=== PATIENT | male | born 1970 | race American Indian/Alaskan Native ===

== ENCOUNTER 2019-09-09 12:45 | Emergency (ER) | payer SELFPAY ==
[2019-09-09 12:52] VITALS: BP 121/70
--- NOTE | 2019-09-09 13:06 | Emergency Department Report ---
ED Eye Problem HPI - General Chief complaint: Eye Problems Stated complaint: EYE DISCOMFORT Time Seen by Provider: 09/09/19 12:56 Source: patient Mode of arrival: Ambulatory Limitations: No Limitations - History of Present Illness Initial comments: pt is a 49 yo male who presents to the ED with c/o left eye irritation and swelling that began a week ago. he has had associated watery drainage, crusting. he states that he does have a hx of eczema and states that he has a rash surrounding the eye. he denies any contact lens use. he states that he believes gnats were flying around a week and a half ago but states that he does not remember the gnat getting into the eye. allergy: latex, codeine. - Related Data Previous Rx's Medication Instructions Recorded Last Taken Type Hydrocortisone [Hydrocortisone 1 applicatio TP BID #1 oint...g. 09/09/19 Unknown Rx 2.5% OINT] Ketotifen Fumarate 1 drop OS BID 10 Days #1 bottle 09/09/19 Unknown Rx Polymyxin B Sulf/Trimethoprim 1 drop OS Q3HR 7 Days #1 bottle 09/09/19 Unknown Rx [Polytrim Eye Drops [id number]/0.1%] Prednisone [predniSONE 10 mg 10 mg PO .TAPER #1 tab.ds.pk 09/09/19 Unknown Rx (6-Day Pack, 21 Tabs)] Allergies Allergy/AdvReac Type Severity Reaction Status Date / Time latex Allergy Hives Verified 09/09/19 12:49 ED Review of Systems ROS: Stated complaint: EYE DISCOMFORT Other details as noted in HPI Comment: All other systems reviewed and negative ED Past Medical Hx - Past Medical History Previous Medical History?: Yes Additional medical history: Eczema - Surgical History Past Surgical History?: No - Social History Smoking Status: Current Every Day Smoker Substance Use Type: Marijuana - Medications Home Medications: Home Medications Medication Instructions Recorded Confirmed Last Taken Type Hydrocortisone [Hydrocortisone 1 applicatio TP BID #1 oint...g. 09/09/19 Unknown Rx 2.5% OINT] Ketotifen Fumarate 1 drop OS BID 10 Days #1 bottle 09/09/19 Unknown Rx Polymyxin B Sulf/Trimethoprim 1 drop OS Q3HR 7 Days #1 bottle 09/09/19 Unknown Rx [Polytrim Eye Drops 92496hyfse/0.1%] Prednisone [predniSONE 10 mg 10 mg PO .TAPER #1 tab.ds.pk 09/09/19 Unknown Rx (6-Day Pack, 21 Tabs)] ED Physical Exam - General Limitations: No Limitations General appearance: alert, in no apparent distress - Head Head exam: Present: atraumatic, normocephalic - Eye Eye exam: Present: PERRL, EOMI, conjunctival injection (left ), other (hyperpigmentation and scaly skin present surrouding the eye). Absent: periorbital swelling, periorbital tenderness - ENT ENT exam: Present: mucous membranes moist - Neurological Exam Neurological exam: Present: alert, oriented X3 - Psychiatric Psychiatric exam: Present: normal affect, normal mood - Skin Skin exam: Present: warm, dry, other (hyperpigmentation and scaling present to the flexural surface of the arms) ED Course Vital Signs 09/09/19 12:49 Temperature 98.6 F Pulse Rate 83 Respiratory 20 Rate Blood Pressure 121/70 O2 Sat by Pulse 98 Oximetry ED Medical Decision Making - Medical Decision Making pt is a 49 yo male who presents to the ED with c/o left eye irritation and swelling that began a week ago. he has had associated watery drainage, crusting. he states that he does have a hx of eczema and states that he has a rash surrounding the eye. he denies any contact lens use. he states that he believes gnats were flying around a week and a half ago but states that he does not remember the gnat getting into the eye. allergy: latex, codeine. Vitals are normal. On exam patient has left-sided conjunctival injection and hyperpigmentation and scaly skin present surrounding the left eye, hyperpigmentation and scaling present to the flexural surface of the arms. He states that he usually uses hydrocortisone cream or triamcinolone and takes prednisone whenever he gets outbreaks of his eczema. Patient given prescription for hydrocortisone, Zaditor, Polytrim, prednisone. Advised patient please use medication as prescribed. please do not get the hydrocortisone ointment in the eye and only use for one week. please separate using the different eye drops by one hour. if you place one of the medications wait an hour before you use the other eye drops. please follow up with an manager fine for reexamination. please follow up with a primary care doctor. return to the emergency room for any new or worsening symptoms. Critical care attestation.: If time is entered above; I have spent that time in minutes in the direct care of this critically ill patient, excluding procedure time. ED Disposition Clinical Impression: Eczema Qualifiers: Eczema type: unspecified Qualified Code(s): L30.9 - Dermatitis, unspecified Conjunctivitis Qualifiers: Conjunctivitis type: acute Acute conjunctivitis type: unspecified Laterality: left Qualified Code(s): H10.32 - Unspecified acute conjunctivitis, left eye Disposition: TO HOME OR SELFCARE Is pt being admited?: No Does the pt Need Aspirin: No Condition: Stable Instructions: Eczema (ED), Conjunctivitis (ED) Additional Instructions: please use medication as prescribed. please do not get the hydrocortisone ointment in the eye and only use for one week. please separate using the different eye drops by one hour. if you place on of the medications wait an hour before you use the other eye drops. please follow up with an manager fine for reexamination. please follow up with a primary care doctor. return to the emergency room for any new or worsening symptoms. Prescriptions: Hydrocortisone [Hydrocortisone 2.5% OINT] 1 applicatio TP BID #1 oint...g. Ketotifen Fumarate 1 drop OS BID 10 Days #1 bottle Polymyxin B Sulf/Trimethoprim [Polytrim Eye Drops [id number]/0.1%] 1 drop OS Q3HR 7 Days #1 bottle Prednisone [predniSONE 10 mg (6-Day Pack, 21 Tabs)] 10 mg PO .TAPER #1 tab.ds.pk Referrals: YUE SHIRLEY MD [Staff Physician] - 3-5 Days [facility], [LAB/CONTRACT] - 3-5 Days [facility] [Outside] - 3-5 Days [facility] [Provider Group] - 2-3 Days Time of Disposition: 13:07 Print Language: NEPALI
== END 2019-09-09 14:26 | disposition home or self-care (01) ==
LOC: ED 12:45
DX: H10.32 Unspecified acute conjunctivitis, left eye (principal); L30.9 Dermatitis, unspecified; F17.200 Nicotine dependence, unspecified, uncomplicated; F12.90 Cannabis use, unspecified, uncomplicated; Z79.899 Other long term (current) drug therapy; Z91.040 Latex allergy status
CPT/HCPCS: 99283

== ENCOUNTER 2019-12-21 14:45 | Emergency (ER) | payer SELFPAY ==
[2019-12-21 15:03] VITALS: BP 106/71
--- NOTE | 2019-12-21 16:58 | Emergency Department Report ---
ED General Adult HPI - General Chief complaint: Eye Problems Stated complaint: EYE PAIN Time Seen by Provider: 12/21/19 16:25 Source: patient Mode of arrival: Ambulatory Limitations: No Limitations - History of Present Illness Initial comments: 49-year-old -[place]ux[place] male patient presents with complaints of left eye pain, redness, and watering x1 week. He denies any trauma to the eye or feelings of a foreign body. Patient also denies contact lens wearing. He rates his current pain as a 6/10 in severity and states his eye was crusted shut upon waking. He denies any pain with eye movements, vision changes, headache, or fever/chills/sweats. He also complains of a itchy X somatic rash surrounding the eyes for the past 2 weeks. -: Gradual - Related Data Previous Rx's Medication Instructions Recorded Last Taken Type Hydrocortisone [Hydrocortisone 1 applicatio TP BID #1 oint...g. 09/09/19 Unknown Rx 2.5% OINT] Polymyxin B Sulf/Trimethoprim 1 drop OS Q3HR 7 Days #1 bottle 09/09/19 Unknown Rx [Polytrim Eye Drops 50475mmwxi/0.1%] Clindamycin [Clindamycin CAP] 300 mg PO Q6H 10 Days #40 capsule 12/21/19 Unknown Rx Ketotifen Fumarate 1 drop OS BID 10 Days #1 bottle 12/21/19 Unknown Rx Prednisone [predniSONE 10 mg 10 mg PO .TAPER #1 tab.ds.pk 12/21/19 Unknown Rx (6-Day Pack, 21 Tabs)] Allergies Allergy/AdvReac Type Severity Reaction Status Date / Time latex Allergy Hives Verified 09/09/19 12:49 ED Review of Systems ROS: Stated complaint: EYE PAIN Other details as noted in HPI Constitutional: denies: chills, fever Eyes: eye pain, eye discharge. denies: vision change ENT: denies: throat pain Skin: rash, pruritus Neurological: denies: headache, numbness, paresthesias Hematological/Lymphatic: denies: swollen glands ED Past Medical Hx - Past Medical History Additional medical history: Eczema - Surgical History Past Surgical History?: No - Social History Smoking Status: Former Smoker Substance Use Type: None - Medications Home Medications: Home Medications Medication Instructions Recorded Confirmed Last Taken Type Hydrocortisone [Hydrocortisone 1 applicatio TP BID #1 oint...g. 09/09/19 Unknown Rx 2.5% OINT] Polymyxin B Sulf/Trimethoprim 1 drop OS Q3HR 7 Days #1 bottle 09/09/19 Unknown Rx [Polytrim Eye Drops [id number]/0.1%] Clindamycin [Clindamycin CAP] 300 mg PO Q6H 10 Days #40 capsule 12/21/19 Unknown Rx Ketotifen Fumarate 1 drop OS BID 10 Days #1 bottle 12/21/19 Unknown Rx Prednisone [predniSONE 10 mg 10 mg PO .TAPER #1 tab.ds.pk 12/21/19 Unknown Rx (6-Day Pack, 21 Tabs)] ED Physical Exam - General Limitations: No Limitations General appearance: alert, in no apparent distress - Head Head exam: Present: atraumatic, normocephalic - Eye Eye exam: Present: PERRL, EOMI (No pain noted with EOMs), conjunctival injection (Left), periorbital swelling (Swelling at the medial corner of the left eye noted with mild erythema; no tenderness to palpation of the surrounding orbit noted), other (Left eye is very watery; no purulent drainage is noted). Absent: scleral icterus, periorbital tenderness - ENT ENT exam: Present: mucous membranes moist - Neck Neck exam: Present: tenderness. Absent: lymphadenopathy - Respiratory Respiratory exam: Present: normal lung sounds bilaterally. Absent: respiratory distress - Cardiovascular Cardiovascular Exam: Present: regular rate - Neurological Exam Neurological exam: Present: alert, oriented X3 - Skin Skin exam: Present: warm, dry, intact. Absent: rash ED Course Vital Signs 12/21/19 15:02 Temperature 98.1 F Pulse Rate 63 Respiratory 18 Rate Blood Pressure 106/71 O2 Sat by Pulse 100 Oximetry ED Medical Decision Making - Medical Decision Making 49-year-old -[place] male patient presents with complaints of left eye pain, redness, and watering x1 week. He denies any trauma to the eye or feelings of a foreign body. Patient also denies contact lens wearing. He rates his current pain as a 6/10 in severity and states his eye was crusted shut upon waking. He denies any pain with eye movements, vision changes, headache, or fever/chills/sweats. He also complains of a itchy X somatic rash surrounding the eyes for the past 2 weeks. Exam is consistent with dacryocystitis. Prescription for clindamycin give. Patient informed to massage the area and use warm compresses. Also recommend follow-up with ophthalmology. Strict return precautions were discussed in detail with patient who verbalizes understanding. Critical care attestation.: If time is entered above; I have spent that time in minutes in the direct care of this critically ill patient, excluding procedure time. ED Disposition Clinical Impression: Eczema of face Dacrocystitis Qualifiers: Laterality: left Qualified Code(s): H04.302 - Unspecified dacryocystitis of left lacrimal passage Disposition: TO HOME OR SELFCARE Is pt being admited?: No Condition: Stable Instructions: Blocked Tear Duct (ED) Prescriptions: Clindamycin [Clindamycin CAP] 300 mg PO Q6H 10 Days #40 capsule Ketotifen Fumarate 1 drop OS BID 10 Days #1 bottle Prednisone [predniSONE 10 mg (6-Day Pack, 21 Tabs)] 10 mg PO .TAPER #1 tab.ds.pk Referrals: BETINA SWAIN MD [Staff Physician] - 2-3 Days
== END 2019-12-21 16:45 | disposition home or self-care (01) ==
LOC: ED 14:45
DX: H04.302 Unspecified dacryocystitis of left lacrimal passage (principal); L30.8 Other specified dermatitis; Z91.040 Latex allergy status
CPT/HCPCS: 99281